=== PATIENT | female | born 1985 | race African-American/Black ===

== ENCOUNTER 2020-07-06 10:06 | Emergency (ER) | payer BC ==
[~2020-07-06] VITALS: Ht 160 cm; Wt 61.0 kg
[2020-07-06 10:09] VITALS: BP 126/58
== END 2020-07-06 10:55 | disposition home or self-care (01) ==
LOC: ER 10:21
DX: S01.511A Laceration without foreign body of lip, initial encounter (principal); S09.8XXA Other specified injuries of head, initial encounter; G44.319 Acute post-traumatic headache, not intractable; V43.62XA Car passenger injured in collision with other type car in traffic accident, initial encounter; Y93.89 Activity, other specified; Y92.488 Other paved roadways as the place of occurrence of the external cause
CPT/HCPCS: 99281